=== PATIENT | male | born 1965 | race Caucasian/White ===

== ENCOUNTER 2021-05-08 12:23 | Emergency (ER) | payer SELFPAY ==
[~2021-05-08] VITALS: Ht 172.7 cm; Wt 82.0 kg
[2021-05-08] MEDS ORDERED: LABETALOL 5MG/ML SYR 20 MG/4 ML SYRINGE IV ONE ×2 (12:30→13:15)
[2021-05-08] MEDS ORDERED: IOHEXOL-350 100 ML BOTTLE ONE (12:52)
[2021-05-08] MEDS ORDERED: NICARDIPINE 40MG/200ML PREMIX 200 ML IV STA (13:03)
[2021-05-08 13:23] LABS: BASOPHILS % 0.5 % (0.0-2.0); EOSINOPHILS % 0.1 % (0.0-5.0); HEMATOCRIT. 46.5 % (42.0-52.0); HEMOGLOBIN. 16.1 g/dL (14.0-18.0); LYMPHOCYTES % 8.6 % (20.0-50.0); MEAN CORPUSCULAR VOLUME 86.5 fL (80.0-94.0); MEAN PLATELET VOLUME 7.9 fl (7.4-10.4); NEUTROPHILS % 86.8 % (40.0-76.0); PLATELET 277 x1000/uL (130-400); RED BLOOD CELL COUNT 5.38 mill/uL (4.7-6.1); RED CELL DISTRIBUTION WIDTH 13.6 % (11.6-14.6)
[2021-05-08] MEDS ORDERED: ALTEPLASE IV ONE ×2 (13:30→13:45)
[2021-05-08] MEDS ORDERED: ALTEPLASE 100MG/VIAL IV NR ×2 (13:30→13:45)
[2021-05-08 13:34] LABS: CHLORIDE 104 mEq/L (98-107)
[2021-05-08 13:38] LABS: ETHANOL BLOOD < 10 mg/dL
[2021-05-08] MEDS ORDERED: *NO ASPIRIN X 24 HOURS XX SCH (14:00)
[2021-05-08] MEDS ORDERED: ASPIRIN 300MG SUPP PR ONE (14:30)
[2021-05-08 16:20] VITALS: BP 224/112
== END 2021-05-08 16:05 | disposition short-term general hospital (02) ==
LOC: ER 12:23 → CANBEDREQ 16:06
DX: I63.22 Cerebral infarction due to unspecified occlusion or stenosis of basilar artery (principal); G81.94 Hemiplegia, unspecified affecting left nondominant side; E11.9 Type 2 diabetes mellitus without complications; I10 Essential (primary) hypertension; Z20.822 Contact with and (suspected) exposure to COVID-19
CPT/HCPCS: 36415; 70450; 70496; 70498; 71045; 80053; 80320; 83690; 83880; 84484; 85025; 87426; 93005; 96374; 96375; 96376; 99291; J3490; Q9967; J2997; G0480

== ENCOUNTER 2025-02-02 10:53 | Emergency (ER) | payer OTHER ==
[~2025-02-02] VITALS: Ht 172.7 cm; Wt 77.0 kg
[2025-02-02 10:55] VITALS: O2SAT 94
[2025-02-02] MEDS: SODIUM CHLORIDE 0.9% (SEPSIS BOLUS) IV ONE (11:12)
[2025-02-02] MEDS: PIPERACILLIN/TAZO 3.375G/50ML 50 ML IV ONE (11:16)
[2025-02-02 11:21] LABS: BASOPHILS % 0.6 % (0.0-2.0); EOSINOPHILS % 0.5 % (0.0-5.0); HEMATOCRIT. 43.3 % (42.0-52.0); HEMOGLOBIN. 14.8 g/dL (14.0-18.0); LYMPHOCYTES % 17.5 % (20.0-50.0); MEAN PLATELET VOLUME 8.1 fl (7.4-10.4); MONOCYTES % 6.7 % (2.0-8.0); NEUTROPHILS % 74.7 % (40.0-76.0); PLATELET 285 x1000/uL (130-400); RED BLOOD CELL COUNT 4.91 mill/uL (4.7-6.1); RED CELL DISTRIBUTION WIDTH 15.6 % (11.6-14.6)
[2025-02-02] MEDS: VANCOMYCIN 1G PREMIX 200 ML IV ONE (11:29)
[2025-02-02 11:42] LABS: INR 1.0
[2025-02-02 12:03] LABS: CREATININE 0.7 mg/dL (0.6-1.3); UREA NITROGEN BLOOD 15 mg/dL (9-23)
[2025-02-02 12:04] LABS: ASPARTATE AMINOTRANSFERASE 17 IU/L (<34)
[2025-02-02 12:05] LABS: BILIRUBIN DIRECT 0.1 mg/dL (<=3.0); BILIRUBIN TOTAL 0.6 mg/dL (0.1-1.0); PROTEIN TOTAL 7.0 g/dL (6.0-8.3)
[2025-02-02] MEDS: KCL 20MEQ/100ML PREMIX 100 ML IV SCH (13:27)
[2025-02-02] MEDS: INSULIN REGULAR (HUMULIN R) 1000UNITS/10ML VIAL SUBCUT ONE (13:37)
[2025-02-02 13:42] VITALS: BP 160/84; PULSE 96; RESP 18; TEMP 36.9; O2SAT 100
== END 2025-02-02 14:25 | disposition short-term general hospital (02) ==
LOC: ER 10:53 → CMPBEDREQ 02-03 07:20
DX: A41.9 Sepsis, unspecified organism (principal); E87.6 Hypokalemia; N30.00 Acute cystitis without hematuria; E86.0 Dehydration; J18.9 Pneumonia, unspecified organism; I10 Essential (primary) hypertension; E78.00 Pure hypercholesterolemia, unspecified; E11.65 Type 2 diabetes mellitus with hyperglycemia; Z86.73 Personal history of transient ischemic attack (TIA), and cerebral infarction without residual deficits
CPT/HCPCS: 80076; 80048; 83605; 85025; 85610; 87040; 36415; 84145; 71045; 93005; 96367; 96368; 96365; 96372; 99285; J1815; J2543; J3480; J3373; J7030; Z7610; A4606